=== PATIENT | male | born 1955 | race American Indian/Alaskan Native ===

== ENCOUNTER 2022-01-12 18:44 | Emergency (ER) | payer BC, MEDICARE ==
[2022-01-12] MEDS: THIAMINE 100 MG, FOLIC ACID 1 MG, MULTIPLE VITAMIN INJ, ADULT 10 ML in SODIUM CHLORIDE ... IV ONE ×2 (22:35→22:47)
--- NOTE | 2022-01-12 23:20 | Cat Scan Report ---
CT head without contrast INDICATION : Syncope with alcohol abuse. TECHNIQUE: Axial imaging performed from the skull apex through the skull base without the use of con trast. All CT examinations performed at this facility utilize dose modulation, iterative reconstruct ion or weight-based dosing, when appropriate, to reduce radiation dose to as low as reasonably achiev able. COMPARISON: None FINDINGS: No acute intracranial hemorrhage is identified. No extra-axial hemorrhage is identified. Th ere is mild diffuse cerebral atrophy. There is moderate periventricular white matter hypodensities pr esent scattered tiny lacunar infarcts identified within the bilateral basal ganglia. The skull is grossly intact. The visualized paranasal sinuses are clear. The orbits are intact. IMPRESSION: No acute intracranial abnormality. Signer Name: Mariano Hay MD Signed: 01/12/2022 11:15 PM Workstation Name: [email or web address]
--- NOTE | 2022-01-12 23:22 | Cat Scan Report ---
CT cervical spine without contrast INDICATION: syncope, etoh abuse. Neck pain after injury TECHNIQUE: Axial imaging performed through the cervical spine without the use of contrast. Sagittal and coronal reconstructed images were also reviewed. All CT scans at this location are performed us ing CT dose reduction for ALARA by means of automated exposure control. COMPARISON: None FINDINGS: Alignment: Spinal alignment is grossly unremarkable. Bones: There is no acute osseous abnormality. Mild multilevel discogenic DJD is present. Soft tissues: No acute or significant incidental soft tissue abnormality. IMPRESSION: No acute abnormality. Signer Name: Mariano Hay MD Signed: 01/12/2022 11:17 PM Workstation Name: [id number]
--- NOTE | 2022-01-12 23:26 | Emergency Department Report ---
ED Syncope HPI - General Chief Complaint: Syncope Stated Complaint: SYNCOPAL EPISODE Time Seen by Provider: 01/12/22 21:56 Source: patient Exam Limitations: no limitations - History of Present Illness Initial Comments: 66-year-old male with a past medical history of alcohol abuse, hypertension, CVA with residual left-sided weakness presents to the hospital after having a syncop al episode. Patient states he was told that he passed out. He denies headache, chest pain, shortness of breath, palpitations, nausea, vomiting, melena, hematochezia. Patient drinks alcohol daily and was drinking moonshine and beer today. EMS reports systolic BP in the 80s on the scene. He received 1 L normal saline prior to arrival with improvement in vital signs and symptoms. Patient is currently asymptomatic. Denies history of PE/DVT - Related Data Allergies/Adverse Reactions: Allergies No Known Allergies Allergy (Unverified 10/05/14 17:49) Home Medications: Ambulatory Orders Naproxen [Naprosyn TAB] 500 mg PO BID PRN 10/07/14 Colchicine [Colcrys] 0.6 mg PO DAILY #30 tablet 10/16/14 Simvastatin (Nf) [Zocor TAB] 10 mg PO QHS #30 tablet 10/16/14 amLODIPine 10 mg PO DAILY #30 tablet 10/16/14 ED Review of Systems ROS: Stated complaint: SYNCOPAL EPISODE Other details as noted in HPI Comment: All other systems reviewed and negative ED Past Medical Hx - Past Medical History Previous Medical History?: Yes Hx Hypertension: Yes Hx CVA: Yes Hx Congestive Heart Failure: No Hx Diabetes: No Hx Asthma: No Hx COPD: No Additional medical history: gout - Surgical History Past Surgical History?: No Hx Pacemaker: No - Social History Smoking Status: Current Every Day Smoker Substance Use Type: Alcohol - Medications Home Medications: Home Medications Medication Instructions Recorded Confirmed Last Taken Type Naproxen [Naprosyn TAB] 500 mg PO BID PRN 10/07/14 10/07/14 10/04/14 History Colchicine [Colcrys] 0.6 mg PO DAILY #30 tablet 10/16/14 Unknown Rx Simvastatin (Nf) [Zocor TAB] 10 mg PO QHS #30 tablet 10/16/14 Unknown Rx amLODIPine 10 mg PO DAILY #30 tablet 10/16/14 Unknown Rx ED Physical Exam - General Limitations: No Limitations - Other Other exam information: General: No acute distress Head: Atraumatic Eyes: normal appearance ENT: Moist mucous membranes Neck: Normal appearance, no midline tenderness Chest: Clear to auscultation bilaterally CV: Regular rate and rhythm Abdomen: Soft, normal bowel sounds, nontender, nondistended, no rebound or guarding Back: Normal inspection Extremity: Normal inspection, full range of motion, no calf tenderness or leg Neuro: Alert O x 3, no facial asymmetry, speech clear, mild left-sided weakness compared to the right chronic as per patient Psych: Appropriate behavior Skin: No rash ED Course Vital Signs 01/12/22 19:35 Temperature 97.3 F L Pulse Rate 77 Respiratory 18 Rate Blood Pressure 110/82 O2 Sat by Pulse 97 Oximetry ED Medical Decision Making - Lab Data Result diagrams: 01/12/22 22:43 01/12/22 22:43 Lab Results 01/12/22 01/12/22 01/12/22 Range/Units 22:43 22:43 22:43 WBC 7.4 (4.5-11.0) K/mm3 RBC 5.28 H (3.65-5.03) M/mm3 Hgb 16.9 H (11.8-15.2) gm/dl Hct 51.7 H (35.5-45.6) % MCV 98 H (84-94) fl MCH 32 (28-32) pg MCHC 33 (32-34) % RDW 14.4 (13.2-15.2) % Plt Count 127 L (140-440) K/mm3 Lymph % (Auto) 12.6 L (13.4-35.0) % [place] % (Auto) 5.1 (0.0-7.3) % Eos % (Auto) 0.1 (0.0-4.3) % Baso % (Auto) 0.8 (0.0-1.8) % Lymph # (Auto) 0.9 L (1.2-5.4) K/mm3 [place] # (Auto) 0.4 (0.0-0.8) K/mm3 Eos # (Auto) 0.0 (0.0-0.4) K/mm3 Baso # (Auto) 0.1 (0.0-0.1) K/mm3 Seg Neutrophils % 81.4 H (40.0-70.0) % Seg Neutrophils # 6.0 (1.8-7.7) K/mm3 PT 14.9 (12.2-14.9) Sec. INR 1.05 (0.87-1.13) Sodium 136 L (137-145) mmol/L Potassium 4.1 (3.6-5.0) mmol/L Chloride 98.3 (98-107) mmol/L Carbon Dioxide 25 (22-30) mmol/L Anion Gap 17 mmol/L BUN 10 (9-20) mg/dL Creatinine 1.3 (0.8-1.3) mg/dL Estimated GFR > 60 ml/min BUN/Creatinine Ratio 8 % Glucose 112 H (75-100) mg/dL Calcium 9.1 (8.4-10.2) mg/dL Magnesium 1.90 (1.7-2.3) mg/dL Total Bilirubin 0.80 (0.1-1.2) mg/dL AST 35 (5-40) units/L ALT 24 (7-56) units/L Alkaline Phosphatase 125 (35-129) units/L Total Creatine Kinase 88 (55-170) units/L CK-MB (CK-2) 1.3 (0.0-4.0) ng/mL CK-MB (CK-2) Rel Index 1.4 (0-4) Troponin T < 0.010 (0.00-0.029) ng/mL Total Protein 7.1 (6.3-8.2) g/dL Albumin 4.2 (3.9-5) g/dL Albumin/Globulin Ratio 1.4 % Plasma/Serum Alcohol (0-0.07) % 01/12/22 Range/Units 22:43 WBC (4.5-11.0) K/mm3 RBC (3.65-5.03) M/mm3 Hgb (11.8-15.2) gm/dl Hct (35.5-45.6) % MCV (84-94) fl MCH (28-32) pg MCHC (32-34) % RDW (13.2-15.2) % Plt Count (140-440) K/mm3 Lymph % (Auto) (13.4-35.0) % [place] % (Auto) (0.0-7.3) % Eos % (Auto) (0.0-4.3) % Baso % (Auto) (0.0-1.8) % Lymph # (Auto) (1.2-5.4) K/mm3 [place] # (Auto) (0.0-0.8) K/mm3 Eos # (Auto) (0.0-0.4) K/mm3 Baso # (Auto) (0.0-0.1) K/mm3 Seg Neutrophils % (40.0-70.0) % Seg Neutrophils # (1.8-7.7) K/mm3 PT (12.2-14.9) Sec. INR (0.87-1.13) Sodium (137-145) mmol/L Potassium (3.6-5.0) mmol/L Chloride (98-107) mmol/L Carbon Dioxide (22-30) mmol/L Anion Gap mmol/L BUN (9-20) mg/dL Creatinine (0.8-1.3) mg/dL Estimated GFR ml/min BUN/Creatinine Ratio % Glucose (75-100) mg/dL Calcium (8.4-10.2) mg/dL Magnesium (1.7-2.3) mg/dL Total Bilirubin (0.1-1.2) mg/dL AST (5-40) units/L ALT (7-56) units/L Alkaline Phosphatase (35-129) units/L Total Creatine Kinase (55-170) units/L CK-MB (CK-2) (0.0-4.0) ng/mL CK-MB (CK-2) Rel Index (0-4) Troponin T (0.00-0.029) ng/mL Total Protein (6.3-8.2) g/dL Albumin (3.9-5) g/dL Albumin/Globulin Ratio % Plasma/Serum Alcohol < 0.01 (0-0.07) % - EKG Data -: EKG Interpreted by [facility] EKG shows normal: sinus rhythm, ST-T waves (no stemi) Rate: normal - Radiology Data Radiology results: report reviewed CT head and cervical spine report reviewed: No acute finding - Medical Decision Making Patient had a syncopal episode prior to arrival and admits to drinking alcohol throughout the day. Patient drinks alcohol daily. Patient was hypotensive upon EMS arrival and improved with 1 L of normal saline. Since ED arrival patient has remained asymptomatic and denies pain complaints. CT head, EKG, CT cervical spine, and labs unremarkable with exception of mild hemoconcentration/elevated hematocrit. Patient treated with a banana bag in the ED and will be discharged home Critical Care Time: No Critical care attestation.: If time is entered above; I have spent that time in minutes in the direct care of this critically ill patient, excluding procedure time. ED Disposition Clinical Impression: Syncope, Hypotension, Alcohol abuse Disposition: HOME / SELF CARE / HOMELESS Is pt being admited?: No Does the pt Need Aspirin: No Condition: Stable Instructions: Syncope (ED), Hypotension, [id number], Syncope, Alcohol Abuse and Dependence Information, Adult Additional Instructions: Continue your current medication as prescribed. Follow-up with your doctor or doctor/clinic provided. Return if symptoms worsen as indicated by your discharge instructions. Professional and Agency Contacts To help [facility] Crises (04/12) [place] Crisis Line: Suicide Prevention Line: Crisis Text Line: Text ``START to 814322 Emergency: 911 SUBSTANCE ABUSE PROGRAMS: [facility] [place]: Location: [place], [place] [employer] Address: [address] [place] [address] [facility]: Address: [address] [place] [address] [facility]: Address: [address] [place] [address] [facility]: Address: [address] [place] [address] Referrals: RAUL GUERRERO MD [Staff Physician] - 3-5 Days (Primary care doctor) [facility] [Provider Group] - 3-5 Days (Primary care clinic) Time of Disposition: 00:46
[2022-01-12 23:37] LABS: Creatine Kinase MB 1.3 ng/mL (0.0-4.0)
[2022-01-12 23:39] LABS: Alanine Aminotransferase 24 units/L (7-56); Albumin 4.2 g/dL (3.9-5); BUN/Creatinine Ratio 8; Blood Urea Nitrogen 10 mg/dL (9-20); Calcium 9.1 mg/dL (8.4-10.2); Hemolysis Index 12
[2022-01-12 23:40] LABS: Basophils # (Auto) 0.1 K/mm3 (0.0-0.1); Basophils % (Auto) 0.8 % (0.0-1.8); Eosinophils % (Auto) 0.1 % (0.0-4.3); Hematocrit 51.7 % (35.5-45.6); Hemoglobin 16.9 gm/dl (11.8-15.2); Lymphocytes # (Auto) 0.9 K/mm3 (1.2-5.4); Lymphocytes % (Auto) 12.6 % (13.4-35.0); Mean Corpuscular HGB Conc 33 % (32-34); Mean Corpuscular Volume 98 fl (84-94); Monocytes # (Auto) 0.4 K/mm3 (0.0-0.8); Monocytes % (Auto) 5.1 % (0.0-7.3); Platelet Count 127 K/mm3 (140-440); Red Blood Count 5.28 M/mm3 (3.65-5.03); Red Cell Distribution Width 14.4 % (13.2-15.2)
[2022-01-12 23:47] LABS: INR 1.05 (0.87-1.13)
[2022-01-13 00:43] VITALS: BP 163/85
--- NOTE | 2022-01-13 13:38 | Electrocardiograph Report ---
[facility] Test Date: 2022-01-12 Test Time: 22:25:27 Pat Name: SARINA JARRELL Department: Room: Gender: M Brusher: TOAN : 1955 Requested By: KAIDEN MALDONADO Order Number: [id number] Reading MD: Jf Newton Measurements Intervals [place] Rate: 68 P: 67 [place]: 172 QRS: 0 QRSD: 90 T: 1 QT: 442 QTc: 472 Interpretive Statements Sinus rhythm No previous ECG available for comparison Electronically Signed On 01-13-2022 13:38:47 EDT by Jf Newton
== END 2022-01-13 02:31 | disposition home or self-care (01) ==
LOC: ED 18:44
DX: R55 Syncope and collapse (principal); I95.9 Hypotension, unspecified; F10.10 Alcohol abuse, uncomplicated; F17.200 Nicotine dependence, unspecified, uncomplicated
CPT/HCPCS: 36415; 70450; 72125; 80053; 82550; 82553; 83735; 84484; 85025; 85610; 93005; 99284; J3411; J3490; J7030; 80320; G0480